=== PATIENT | female | born 2000 | race Two or more races ===

== ENCOUNTER 2024-12-31 06:15 | Emergency (ER) | payer MEDICAID, SELFPAY ==
[2024-12-31 06:21] VITALS: BP 139/86; PULSE 86; RESP 18; TEMP 37; O2SAT 97
[2024-12-31 07:01] LABS: Basophils # (Auto) 0.1 Thou/mm3 (0.0-0.2); Basophils % (Auto) 1 % (0-2.5); Eosinophils # (Auto) 0.3 Thou/mm3 (0.0-0.5); Eosinophils % (Auto) 3 % (0-10); Hematocrit 40.4 % (36.0-46.0); Hemoglobin 13.4 g/dL (12.0-16.0); Immature Granulocytes Auto 0.03 Thou/mm3 (0.00-0.00); Lymphocytes # (Auto) 2.1 Thou/mm3 (1.0-4.8); Lymphocytes % (Auto) 22 % (10-50); Mean Corpuscular HGB Conc 33.2 g/dl (31.0-37.0); Mean Corpuscular Hemoglobin 30.2 pg (25.0-35.0); Mean Corpuscular Volume 91 fL (80-100); Monocytes # (Auto) 0.7 Thou/mm3 (0.0-0.8); Monocytes % (Auto) 7 % (0-12); Neutrophils # (Auto) 6.6 Thou/mm3 (1.8-7.7); Neutrophils % (Auto) 68 % (37-80); Nucleated Red Blood Cell # 0.00 Thou/mm3 (0.00-0.00); Nucleated Red Blood Cell % 0 /100 WBC (0); Platelet Count 240 Thou/mm3 (140-440); RDW Standard Deviation 41.7 fL (36.4-46.3); Red Blood Count 4.44 Miln/mm3 (4.00-5.20); White Blood Count 9.7 Thou/mm3 (3.6-11.0)
[2024-12-31 07:22] LABS: Alanine Aminotransferase 15 U/L (10-49); Albumin, Serum 4.8 gm/dL (3.5-5.0); Albumin/Globulin Ratio 2.3 (1.2-2.2); Alkaline Phosphatase 69 U/L (46-116); Anion Gap 10 (7-16); Aspartate Amino Transferase 21 U/L (0-34); BUN/Creatinine Ratio 13 Ratio (12-20); Bilirubin,Total 0.7 mg/dL (0.3-1.2); Blood Urea Nitrogen 8 mg/dL (9-23); Calcium 9.2 mg/dL (8.3-10.6); Calcium (Corrected) 9.2 mg/dL (8.5-10.1); Carbon Dioxide 24.5 mMol/L (20.0-31.0); Chloride 105 mMol/L (98-107); Creatinine (Component) 0.6 mg/dL (0.6-1.3); Estimated Creatinine Clearance 147.9 mL/min (>60); Globulin 2.1 gm/dL (2.3-3.5); Glucose 95 mg/dL (74-106); Osmolality,Calculated 275 (275-295); Potassium 3.8 mMol/L (3.4-5.1); Sodium 139 mMol/L (136-145); Total Protein 6.9 gm/dL (5.7-8.2); eGFR > 60 See Note
--- NOTE | 2024-12-31 07:34 | EDNOTE_ITS ---
ED OB Contraction Preg RMI/HPI General Chief complaint: Vaginal Bleeding Stated complaint: VAGINAL BLEEDING Time Seen by Provider: 12/31/24 06:18 Arrival date/time: 12/31/24 06:15 24-year-old female presents to the emergency department today for complaint of vaginal bleeding patient worsening some onset today Limitations: no limitations Related Data Home Medications ?Medication ?Instructions ?Recorded ?Confirmed prenat.vits,gabrielle,[id number] 1 tab PO QDAY 08/10/22 11/23/22 Previous Rx's ?Medication ?Instructions ?Recorded doxycycline hyclate 100 mg tablet 100 mg PO BID #14 ta bs 12/31/24 hydrocodone 5 mg-acetaminophen 325 1 tab PO BID PRN pa in #6 tabs 12/31/24 mg tablet Allergies Allergy/AdvReac Type Severity Reaction Status Date / Time No Known Allergies Allergy Verified 12/31/24 06:18 Review of Systems Review of Systems Systems Reviewed: All systems reviewed, normal except as documented Constitutional Constitutional: Reports system reviewed and no additional complaints, except as documented, Denies fever(s) and Denies headache(s) Eyes Eyes: Reports system reviewed and no additional complaints, except as documented and Denies blurry vision ENT Ears, Nose, Mouth, and Throat: Reports system reviewed and no additional complaints, except as documented, Denies headache(s), Denies nasal congestion a nd Denies nasal discharge Cardiovascular Cardiovascular: Reports system reviewed and no additional complaints, except as documented, Denies chest pain and Denies dyspnea Respiratory Respiratory: Reports system reviewed and no additional complaints, except as documented, Denies chest congestion, Denies cough and Denies dyspnea Gastrointestinal Gastrointestinal: Reports system reviewed and no additional complaints, except as documented and Denies abdominal pain Genitourinary Genitourinary: Reports system reviewed and no additional complaints, except as documented and Reports abnormal vaginal bleeding Integumentary/Breasts Skin/Breast: Reports system reviewed and no additional complaints, except as documented and Denies rash Neurologic Neurologic: Reports system reviewed and no additional complaints, except as documented, Reports as per HPI and Denies headache(s) Past Medical History Past Medical History NEUROLOGIC: Negative Neurological Disorders or Seizures CARDIAC: Negative Cardiac Disorders or Congestive Heart Failure RESPIRATORY: Negative Chronic Obstructive Pulmonary Disease (COPD) or Asthma GASTROINTESTINAL: Negative Gastrointestinal Disorders GENITOURINARY: Negative Genitourinary Disorders or Renal Disease REPRODUCTIVE: Positive Previous Pregnancies (x1 PREVIOUS 09/2016); Negative Uterine Prolapse MUSCULOSKELETAL: Negative Musculoskeletal Disorders ENDOCRINE: Negative Endocrine Disorders, Diabetes Mellitus Type 1 or Diabetes Mellitus Type 2 HEMATOLOGIC: Negative Blood Disorders or Anemia PSYCHO/SOCIAL: Negative Depression, Anxiety or Depression OTHER HISTORY: Negative Autoimmune Disease, Falls, Blood Transfusions, Blood Transfusion Reaction, Anesthesia Reactions, Organ Transplant or Chemotherapy Family History FAMILY HISTORY: Negative Family Psychiatric Problems, Family Respiratory Disorders, Family Cardiac Disorders, Family Gastrointestinal Problems, Family Cancer, Family Surgery or Family Anesthesia Reaction Surgical History SURGICAL: Positive Section (2017); Negative Organ Transplant Social History SMOKING STATUS: Never smoker ED Exam General Limitations: Present no limitations General appearance: Present alert and in no apparent distress Head Head exam: Present atraumatic, normocephalic and normal inspection Eye Eye exam: Present normal appearance, PERRL and EOMI; Absent conjunctival injection ENT ENT exam: Present normal exam, normal oropharynx and mucous membranes moist Neck Neck exam: Present normal inspection, full ROM and trachea midline Chest Chest inspection: Present normal inspection and symmetric chest wall rise Respiratory Respiratory exam: Present normal lung sounds bilaterally; Absent respiratory distress Cardiovascular Cardiovascular exam: Present regular rate, normal rhythm and normal heart sounds Abdominal Exam Abdominal exam: Present soft and normal bowel sounds; Absent distention, tenderness, guarding, rebound or rigidity Extremities Exam Extremities exam: Present normal inspection and full ROM Back Exam Back exam: Present normal inspection and full ROM Neurological Exam Neurological exam: Present alert, oriented X3 and CN II-XII intact Psychiatric Psychiatric exam: Present normal affect and normal mood Skin Skin exam: Present warm, dry, intact and normal color Course Quality Measures none Orders Category Date Time Status US OB <= 14 weeks fetus Stat Exams 12/31/24 07:37 Completed ABO/RH Type Stat Lab 12/31/24 06:41 Completed Beta HCG,Quantitative Stat Lab 12/31/24 06:41 Completed CBC Stat Lab 12/31/24 06:41 Completed Comprehensive Metabolic Panel Stat Lab 12/31/24 06:41 Completed Misoprostol [Cytotec] Med 12/31/24 09:01 Discontinued 400 mcg PO X1 ONE Vital Signs Vital signs: Vital Signs Temperature 98.6 F 12/31/24 06:21 Pulse Rate 86 12/31/24 06:21 Respiratory Rate 18 12/31/24 06:21 Blood Pressure 139/86 H 12/31/24 06:21 Pulse Oximetry (%) 97 12/31/24 06:21 Oxygen Delivery Method Room Air 12/31/24 06:21 O2 saturation 97% room air wNL Vaginal Bleeding MDM Narrative MDM Narrative: 24-year-old female presents to the emergency department today for complaint of vaginal bleeding patient worsening some onset today On exam patient well-appearing patient does not appear ill or toxic in no acute distress Lab work and imaging obtained 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 Flowers recommend the patient get 1 dose of Cytotec here to be discharged home on doxycycline without further Cytotec treatment Patient be seen on an outpatient basis as patient has normal vital signs and has no significant pain no fever and hemodynamically stable with normal H&H Explained to the patient if her symptoms persist if she develops worsening pain or worsening bleeding she must return immediately for further evaluation patient states understanding is amenable to this plan Patient data [place] [facility] [place] Clinical information provided by:: patient Social determinants that could affect healthcare access:: none Patient has the following chronic illnesses:: None How is presenting disease/condition affected by chronic disease/condition?: no chronic disease Evaluation data The following diagnostics were reviewed and interpreted by me:: lab results and radiology exam(s) Lab and/or radiology exams considered but not ordered:: Labs radiology obtained Interpretation Summary: Reviewed by me Medications / Prescriptions Medications or Prescriptions considered but not ordered:: Given Medication administrations:: Medication Administration History Discontinued Medications Misoprostol (Misoprostol 200 Mcg Tablet) 400 mcg PO X1 ONE Stop: 12/31/24 09:02 Last Admin: 12/31/24 09:50 Dose: 400 mcg Documented By: KM Given Consultations Consultation(s) initiated? (list below): No Diagnosis Vaginal Bleeding Differential Diagnosis: missed , threatened and incomplete Most likely diagnosis given after review of the tests above:: Incomplete Admission Indicated Admission indicated?: not indicated Admission Request Was there a request for admission?: No Disposition Plan Disposition Plan: Discharge Discharge Attestation Discharge Attestation: The patient and all family members were given an opportunity to ask questions and understood the discharge instructions. Discharge instructions specifically effects, indications for sooner follow up or return to the emergency department, and the expected course of current diagnosis. Patient condition: Stable Discharge Plan Plan Patient Disposition: HOME (Self Care) Discharge Disposition comment: Stable Prescriptions/Referrals Prescriptions/Med Rec: New doxycycline hyclate 100 mg tablet 100 mg PO BID Qty: 14 0RF hydrocodone-acetaminophen 5-325 mg tablet 1 tab PO BID MDD 10 PRN (Reason: pain) Qty: 6 0RF No Action prenat.vits,gabrielle,[id number] Tablet 1 tab PO QDAY Referrals: Rob Flowers MD [Physician, CERTIFIED MEDICAL BILLER] - 01/01/25 Problem List Clinical Impression: Incomplete Patient/Caregiver Discharge Instructions Education Materials: ED Miscarriage, Incomplete Additional Instructions: Please follow-up with the office of Dr. Clement as discussed If you have increased bleeding or increased pain you must return to the ER immediately for further evaluation Take antibiotics as discussed Print Language: Serbian Stand Alone Forms: Rosita Award Info., Patient Portal Info Letter PA/AUTHORIZATION REPRESENTATIVE Supervising Physician PA/AUTHORIZATION REPRESENTATIVE Supervising Physician: dr robb
--- NOTE | 2024-12-31 07:37 | XR_ITS ---
Examination: Complete OB ultrasound, less than 14 weeks, transabdominal INDICATION: Patient states vaginal spotting for 2 weeks, and onset of heavy vaginal bleeding today Date and time of exam: 12/31/2024 at 7:35 a.m. COMPARISON: None pertinent to this reported Technique: Obstetrical ultrasound images less than 14 weeks performed via transabdominal imaging Findings: LMP reported as 10/15/2024. Beta hCG = 7134. The uterus is anteverted and measured at 11.1 x 6.3 x 6.2 cm. There is no evidence for a normal gestational sac with pole. However, there is heterogeneous thickening of the endometrial canal measuring up to 4 cm, with focal vascularity at the fundus. There is no evidence for an adnexal mass to suggest ectopic , nor is there free pelvic fluid. The right ovary measures 2.5 x 1.6 x 2.7 cm with intact blood flow. Indeterminant but likely benign nonspecific rounded hyperechoic focus at the periphery of the right ovary measures 0.9 x 0.5 x 0.9 cm. The left ovary measures 3.3 x 1.9 x 2.1 cm, exhibits intact blood flow and is otherwise unremarkable. IMPRESSION: Findings highly suggestive of spontaneous with retained products of conception at the fundal portion of the endometrial canal. No findings concerning for ectopic . No evidence for ovarian torsion.
[2024-12-31 07:49] LABS: Beta HCG,Quantitative 7134 mIU/mL (<5.0)
[2024-12-31 08:15] VITALS: BP 122/83; PULSE 69; RESP 19; TEMP 36.8; O2SAT 98
--- NOTE | 2024-12-31 08:42 | PC.NURSE ---
Addendum entered by Lis Gerard RN 12/31/24 08:45: Patient Original Note: Patient from [facility] and taken to room 17 with c/o vaginal bleeding, large amount with clots this am, patient approx, 12weeks , states she was spotting since the beginning of november and this am she had more bleeding, patient denies pain, states it subsided shortly after passing blood, skin warm dry and pink. Call light within reach, [place] [employer]ENDING OFFICER to examine patient.
[2024-12-31 09:52] VITALS: BP 115/80; PULSE 83; RESP 16; TEMP 37.1; O2SAT 98
== END 2024-12-31 09:52 | disposition home or self-care (01) ==
PROVIDERS: Nurse Practitioner Primary Care; Emergency Provider Family Medicine; PCP Family Medicine
DX: O03.4 Incomplete spontaneous abortion without complication (principal)
CPT/HCPCS: 36415; 76801; 80053; 84702; 85025; 86900; 86901; 99283; S0191; A9270

== ENCOUNTER 2025-01-01 10:49 | Outpatient (AMB) | payer MEDICAID, SELFPAY ==
[2025-01-01 10:54] VITALS: BP 127/82; PULSE 82; RESP 16; TEMP 36.2; O2SAT 98; BMI 33.1
--- NOTE | 2025-01-01 10:54 | AMB.GYNCLNOT ---
Vital Signs 01/01/25 10:54 Height 1.6 m Height Method Stated Weight 84.935 kg Weight Measurement Method Standing Scale BMI 33.1 BP 127/82 Blood Pressure Source Automatic Cuff Blood Pressure Location Left Upper Arm Position Sitting Respiration 16 Pulse 82 Pulse Source Monitor Temp 97.2 F Temp Source Oral Pulse Oximetry (%) 98 Oxygen Delivery Method Room Air Allergies/Home Meds Allergies & Medications Allergies No Known Allergies Allergy (Verified 01/14/25 13:51) Intake Visit Data Collection New Patient or Established: Established Patient (seen at [facility] within 3 years) Reason for Visit:: ER FU Seen by Clinical Staff ONLY (RN/MA): No Electronic Funds Transfer Coordinator Required: No Do You Feel Safe at Home: Yes Authorities Contacted: N/A PCP or OBGYN visit in last 3 months: Yes Date of Last PCP or OBGYN visit: 12/31/24 Hx Now: No Are you currently on any form of Control: No Pain Present Currently: No Pain Scale Used: Collins-Blanc/Numerical Pain scale:: 0 Smoking Status Smoking Status: Never smoker Immunizations Flu Vaccine in the Last 12 Months: No Flu Vaccine Exclusion Criteria: No Exclusion Criteria Avionics Engineer history Avionics Engineer History Menstrual regularity: regular Flow: normal Monthly: Yes Menopausal: No Currently sexually active: Yes 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 1. Little interest or pleasure in doing things: not at all 2. Feeling down, depressed, or hopeless: not at all Total score: 0 PHQ-9 3. Trouble falling or staying asleep, or sleeping too much: Not at all 4. Feeling tired or having little energy: Not at all 5. Poor appetite or overeating: Not at all 6. Feeling bad about yourself - or that you are a failure or have let yourself or your family down: Not at all 7. Trouble concentrating on things, such as reading the newspaper or watching television: Not at all 8. Moving or speaking so slowly that other people could have noticed? - Or the opposite - being so fidgety or restless that you have been moving around a lot more than usual: not at all 9. Thoughts that you would be better off or of hurting yourself in some way: Not at all Total score: 0 If you checked off any problems, how difficult have these problems made it for you to do your work, take care of things at home, or get along with other people?: not difficult at all Source: Developed by Drs. Jerry Davis, Karlee Marie, Kenji Clarke and colleagues, with an educational humberto from [employer]. Depression screen completed yes Social History Living Situation History Housing: House Tobacco History Smoking Status: Never smoker Second Hand Smoke Exposure: No Alcohol History Alcohol Intake: Never Domestic Abuse History Do You Feel Safe at Home: Yes History of Present Illness HPI Narrative Follow-up for bleeding in early after emergency room visit yesterday Patient is a [id number] presenting for follow-up after being seen in the emergency department yesterday (December 31, 2024) for bleeding in early . She was diagnosed with a spontaneous and prescribed medication to help expel remaining tissue along with antibiotics. The patient reports that her bleeding has improved significantly since yesterday and is now more like period bleeding. She took the prescribed one-time medication and antibiotic as directed. She had been using timing method for contraception after missing an appointment to get control refills, during which time she became . She has already stopped and expressed interest in resuming control pills. Medical History: - Emergency room visit on December 31, 2024 for bleeding in early Obstetric History: - GPAL: G2 T1 L1 - Current : Recent spontaneous (miscarriage) in early , currently being managed with medication - Previous resulted in term delivery of living child Medications: - One-time medicine prescribed from ER yesterday, patient took as directed - Antibiotic prescribed from ER yesterday, patient took as directed, given as preventive measure - control pills, previously taking but stopped due to inability to get appointment for refill Social History: - Recently unable to obtain control appointment, was using timing method for contraception - Recently stopped Diagnostic Test Results and Labs: - Serum beta-hCG (12-31-2024): 7134 - Ultrasound (12-31-2024): Findings consistent with spontaneous , blood and clots present, no evidence of ectopic or abnormal Exam General General Appearance: alert, in no apparent distress and healthy appearing Head Head exam: atraumatic Neck Neck exam: Present normal inspection and trachea midline Chest Chest inspection: Present normal inspection and symmetric chest wall rise External exam: Present normal external exam; Absent tenderness Neuro Neurological exam: Present oriented X3 Psych Psychiatric exam: Present normal affect and normal mood Office Procedures OBC Clinic LOC & Office Proc's Nursing/Assessment Patient Status: Established Patient OB Clinic Nursing Assessment: Medication Reconciliation, Update PMH in EMR and Vital Signs OB Clinic Coordination of Care: Consent,records obtained, informed consent, Education Simp Pt/Fam, Lab and Imaging orders, Results/Orders obtained and Staff clarify orders Established Patient Charge Established Patient Point Assignment: 80 Established Patient Point Charge: Level 3 (80-115) Assessment & Plan Diagnosis / Problem List (1) Encounter for initial prescription of contraceptive pills: Status: Acute (2) Incomplete spontaneous without complication: Status: Acute Plan Spontaneous with retained products Assessment: Patient experienced spontaneous with retained blood and clots identified on ultrasound during emergency department visit yesterday. Serum beta-hCG was 7134. Patient was treated with medication to expel retained products and prophylactic antibiotics. Current bleeding has improved to period-like flow as expected following medical management. Plan: - Follow-up ultrasound and blood test in one week to confirm complete evacuation - Continue prophylactic antibiotic as prescribed to prevent infection - Return if bleeding becomes heavier than expected - Recovery anticipated to be good with current management Contraception counseling Assessment: Patient was using timing method for contraception after missing appointment for control refill, which resulted in unintended . Patient has stopped and desires to resume oral contraceptive pills. Plan: - Prescribe oral contraceptive pills - Patient may start contraception immediately if desired - Prescription to be available for pickup today
== END 2025-01-01 11:13 | disposition home or self-care (01) ==
LOC: HODSOBC 10:49
PROVIDERS: Supervising Provider Obstetrics & Gynecology; Visit Provider Obstetrics & Gynecology
DX: O03.4 Incomplete spontaneous abortion without complication (principal); Z30.011 Encounter for initial prescription of contraceptive pills
CPT/HCPCS: 99213; G0463

== ENCOUNTER 2025-01-14 13:46 | Outpatient (AMB) | payer MEDICAID, SELFPAY ==
--- NOTE | 2025-01-14 13:51 | GYNCLNT_ITS ---
Allergies/Home Meds Allergies & Medications Allergies No Known Allergies Allergy (Verified 01/14/25 13:51) Intake Visit Data Collection New Patient or Established: Established Patient (seen at [facility] within 3 years) Reason for Visit:: RESULTS Consent obtained for Telemed Visit: Yes Seen by Clinical Staff ONLY (RN/DUSTIN): No Financial Services Consultant Required: No Do You Feel Safe at Home: Yes Authorities Contacted: N/A PCP or OBGYN visit in last 3 months: Yes Date of Last PCP or OBGYN visit: 12/31/24 Hx Now: No Are you currently on any form of Control: No Last menstrual period: 10/15/24 Pain Present Currently: No Pain Scale Used: Collins-Blanc/Numerical Pain scale:: 0 Smoking Status Smoking Status: Never smoker Immunizations Flu Vaccine in the Last 12 Months: No Flu Vaccine Exclusion Criteria: No Exclusion Criteria For Telemed visit only Telemed Video/Phone Visit: Yes Verbal consent obtained for Telemed visit?: Yes Verbal Consent witness name: DAVID SMITH MA Telemed Video/Phone visit w/Clinical Staff: 11-20 min Senior 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 Senior Business Manager History Menstrual regularity: regular Flow: normal Monthly: Yes How many days does period last: 5 Age at menarche: 12 If not currently sexually active, have you ever been sexually active: No 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 1. Little interest or pleasure in doing things: not at all 2. Feeling down, depressed, or hopeless: not at all Total score: 0 PHQ-9 3. Trouble falling or staying asleep, or sleeping too much: Not at all 4. Feeling tired or having little energy: Not at all 5. Poor appetite or overeating: Not at all 6. Feeling bad about yourself - or that you are a failure or have let yourself or your family down: Not at all 7. Trouble concentrating on things, such as reading the newspaper or watching television: Not at all 8. Moving or speaking so slowly that other people could have noticed? - Or the opposite - being so fidgety or restless that you have been moving around a lot more than usual: not at all 9. Thoughts that you would be better off or of hurting yourself in some way: Not at all Total score: 0 If you checked off any problems, how difficult have these problems made it for you to do your work, take care of things at home, or get along with other people?: not difficult at all Source: Developed by Drs. Jerry Davis, Karlee Marie, Kenji Clarke and colleagues, with an educational humberto from [employer]. Depression screen completed yes Social History Living Situation History Marital Status: Life Partner Lives With: Family Housing: House Tobacco History Smoking Status: Never smoker Second Hand Smoke Exposure: No Alcohol History Alcohol Intake: Never Domestic Abuse History Do You Feel Safe at Home: Yes History of Present Illness HPI Narrative Patient presents for televisit for review of ultrasound result. She was seen last week for spontaneous miscarriage and her bleeding has now resolved. Serum hCG has significantly dropped to 63 milliunits. Ultrasound results are as follows. 01/04/2025: Uterus 12.7 cm no intrauterine gestation Thickened heterogeneously nodular endometrium 15 mm Right ovary 3.6 cm arterial flow, 10 mm right adnexal calcification Left ovary 2.5 cm arterial flow Exam Narrative Physical exam: Not performed due to televisit Office Procedures OBC Clinic LOC & Office Proc's Nursing/Assessment Patient Status: Established Patient OB Clinic Nursing Assessment: Medication Reconciliation, Update PMH in EMR and Vital Signs OB Clinic Coordination of Care: Complex Care and Chronic Disease 1-5, Education Complex Pt/Fam, Consent,records obtained, informed consent, Lab and Imaging orders, Results/Orders obtained and Staff clarify orders Established Patient Charge Established Patient Point Assignment: 110 Telehealth If patient is seen using Teleconference methods, complete New/Est section, but DO NOT fan points only fan the correct Telemed visit type Telemed Phone/Video with patient at home & ,PA,FRUIT CULLER: Yes Telemed Phone/Video with patient in Clinic w/,FRUIT CULLER,PA outside Clinic: Yes Assessment & Plan Diagnosis / Problem List (1) Incomplete spontaneous without complication: Status: Acute (2) Encounter for initial prescription of contraceptive pills: Status: Acute Plan Findings are consistent with completed spontaneous miscarriage. Patient's bleeding has significantly reduced. Serum hCG has dropped significantly. No additional follow-up recommended at this time. Patient was advised to initiate contraception if she desired.
== END 2025-01-14 14:13 | disposition home or self-care (01) ==
LOC: HODSOBC 13:46
PROVIDERS: Supervising Provider Obstetrics & Gynecology; Visit Provider Obstetrics & Gynecology
DX: O03.4 Incomplete spontaneous abortion without complication (principal); Z30.011 Encounter for initial prescription of contraceptive pills
CPT/HCPCS: 99212; Q3014; G0463